=== PATIENT | female | born 1975 | race Caucasian/White ===

== ENCOUNTER → 2017-06-10 | Outpatient (CLI) | payer BC ==
[~2017-06-10] MED LIST: ESCI1TAB10 PO; LISD40CA PO; OXYC5TAB PO
== END | disposition home or self-care (01) ==
LOC: C.RDSM 15:00
PROVIDERS: ATTEND Physical Medicine & Rehabilitation Sports Medicine
DX: M25.512 Pain in left shoulder (principal)

== ENCOUNTER → 2017-09-09 | Outpatient (CLI) | payer BC ==
--- NOTE | 2017-09-09 11:08 | DIAGNOSTIC IMAGING REPORT ---
MRI OF THE LEFT SHOULDER CLINICAL HISTORY: Left shoulder pain. Decreased range of motion. Adhesive capsulitis. COMPARISON STUDY: Radiographs of the left shoulder dated 06/10/2017. TECHNIQUE: MRI of the left shoulder was performed utilizing various T1 and T2 weighted sequences in the axial, sagittal, coronal planes. IV contrast was not administered for this examination. FINDINGS: Rotator cuff: The supraspinatus and intraspinous tendons are preserved. The teres minor and subscapularis tendons are intact. There is no subacromial or subdeltoid bursal fluid. The acromioclavicular joint is unremarkable. Biceps tendon: The long head of the biceps tendon is normal in signal intensity and located within the bicipital groove. The anchor is maintained. Labrum: Grossly intact. Shoulder joint: There is no joint effusion. The articular cartilage over the glenoid is well maintained. Normal marrow signal intensity is preserved of the visualized osseous structures. There is mild thickening of the inferior glenohumeral ligament. No significant surrounding inflammation is identified. Musculature and soft tissues: The musculature of the shoulder is normal in bulk and signal intensity. No atrophy is seen. IMPRESSION: 1. The rotator cuff appears intact. 2. The long head of the biceps tendon is maintained. 3. There is mild nonspecific thickening of the inferior glenohumeral ligament. No significant surrounding inflammation is seen. This could be seen in the setting of adhesive capsulitis as clinically suspected. Clinical correlation will be essential. Electronically signed by: Donaldo Milian M.D. 09/09/2017 11:07 AM Dictated Date/Time: 09/09/2017 11:02 AM
== END | disposition home or self-care (01) ==
LOC: C.MRIBC 10:11
PROVIDERS: ATTEND Physical Medicine & Rehabilitation Sports Medicine
DX: M75.02 Adhesive capsulitis of left shoulder (principal)

== ENCOUNTER → 2017-10-15 | Day surgery (SDC) | payer BC, OTHER ==
[2017-09-29 12:25] VITALS: Ht 160 cm; Wt 68.2 kg
[~2017-10-15] VITALS: Ht 160 cm; Wt 68.2 kg
[~2017-10-15] MED LIST changes: +ATROPINE SULFATE 0.1 MG/ML 5ML SYR IV PRN; +CEFAZOLIN 2000MG IV PUSH 10 ML IV SCH; +CLON1TAB3 PO; +DEXAMETHASONE SOD INJ 4 MG/ML VIAL ONE; +ERGO500037 PO; -ESCI1TAB10 PO; +EpHEDrine SULFATE INJ 50 MG/ML AMP IV PRN; +FENTANYL CITRATE INJ 50 MCG/1 ML 2 ML VIAL IV PRN; +FENTANYL CITRATE INJ 50 MCG/1 ML 2 ML VIAL ONE; +HYDR-5688 PO; +LACTATED RINGER'S 1000ML 1,000 ML IV SCH; +LIDOCAINE HCL 1% MPF 5 ML VIAL ONE; +LIDOCAINE HCL 2% 2 ML VIAL (20MG/ML) ONE; +LIDOCAINE/EPINEPHRINE 1% INJ 50 ML VIAL ONE; +MIDAZOLAM HCL 1 MG/ML 2ML VIAL ONE; +MoRPHine SULFATE 2 MG/ML CARP IV PRN; +MoRPHine SULFATE 4 MG/ML 1 ML CARP\\VIAL IV PRN; +ONDANSETRON INJ 2 MG/ML 2 ML VIAL IV PRN; +ONDANSETRON INJ 2 MG/ML 2 ML VIAL ONE; -OXYC5TAB PO; +OXYCODONE/ACETAMINOPHEN 5-325 TAB PO PRN; +PATIENT'S ALLERGY INFO NEEDS ENTERED SCH; +PROPOFOL IV EMULSION 10 MG/ML 20 ML VIAL IV ONE; +ROPIVACAINE 0.5% 5 MG/ML 30 ML VIAL ONE; +SODIUM CHLORIDE 0.9% 1000ML 1,000 ML IV SCH; +VENL75CA PO
--- NOTE | 2017-10-15 13:52 | History & Physical Bridge Note ---
H&P Re-Evaluation Bridge Note: I have examined the patient, reviewed the History & Physical and in the interval since the performance of the History & Physical I have noted the following changes of clinical significance: No changes noted
--- NOTE | 2017-10-15 14:44 | [facility] Post Operative Brief Note ---
Immediate Operative Summary Operative Date Oct 15, 2017. Pre-Operative Diagnosis left frozen shoulder Post-Operative Diagnosis same Procedure(s) Performed exam and manipulation under anesthesia, steroid injection Surgeon sahara Resort Keeper Surgeon(s) jm edwards, student Estimated Blood Loss none Findings stiff shoulder Specimens none Drains 0 Anesthesia Iv sedation with block Complication(s) None Disposition Recovery Room / PACU
--- NOTE | 2017-10-15 14:50 | Discharge Instructions-SurgCtr ---
Discharge Instructions Date of Service Oct 15, 2017. Visit Reason for Visit: Left Shoulder Frozen Discharge Discharge Diagnosis / Problem: left frozen shoulder Discharge Goals Goal(s): Decrease discomfort, Improve function, Increase independence Activity Recommendations Activity Limitations: per Instructions/Follow-up section Weightbearing Status: Left weightbearing (as tolerated) Anesthesia . Post Anesthesia Instructions: If you have had General Anesthesia or IV Sedation: * Do not drive today. * Resume driving when surgeon permits. * Do not make important decisions or sign legal documents today. * Call surgeon for: 1. Temperature elevations greater than 101 degrees F. 2. Uncontrollable pain. 3. Excessive bleeding. 4. Persistent nausea and vomiting. 5. Medication intolerance (nausea, vomiting or rash). * For nausea and vomiting use only clear liquids such as: tea, soda, bouillon until nausea subsides, then gradually increase diet as tolerated. * If you have any concerns or questions, call your surgeon's office. If physician is unavailable and it is an emergency, call 911 or go to the nearest emergency room. . Instructions / Follow-Up Instructions / Follow-Up The following are instructions to follow after "Shoulder Surgery" including, Acromioplasty, Rotator Cuff Repair and Instability Surgery ACTIVITY RECOMMENDATIONS: * Minimize activity after surgery. * No excessive walking, jogging, sports or laboring. * Return to activity is individualized depending on the patient and type of surgery. * Driving is not permitted until at least your first post operative visit. Please ask your doctor when it is safe to resume driving. * Expect increased discomfort with increased activity. Continue to ice the shoulder as needed. SCHOOL/WORK RECOMMENDATIONS: * You may return to sedentary work or school when you are feeling more comfortable. This is usually 3-7 days after surgery. MEDICATIONS: * You will have a prescription for pain medication and an anti-inflammatory medication after surgery. * Use the pain medication for severe pain and the anti-inflammatory for less severe pain. Once the pain medication has run out, try to use the anti-inflammatory medication. If this is not effective, contact the office for assistance. * The pain medication may cause nausea, constipation and drowsiness. You should see how they affect you before driving or similar activity. * The anti-inflammatory medication may cause stomach upset and bleeding. If this occurs let your doctor know immediately . * Take a stool softener like Colace or a laxative like Senokot to prevent constipation. DIET: * Resume previous diet. SPECIAL CARE: ICE: You have the option of an ice cooler, gel packs or ice bags. * If you have an ice cooler, refer to the instructions for that device. The ice cooler may be used continuously. * If you do not have an ice cooler, you will need to use ice bags or gel packs. Do not apply ice directly to the skin. Use a thin dressing or katie shirt between the skin and ice bag. Apply ice for 20-30 minutes and repeat every 2-4 hours. This is especially important for the first 7-10 days after surgery. Once the pain improves, use ice as needed. ELEVATION: * You may be more comfortable sleeping in an upright position. Use the sling to elevate your arm. SLING/BRACE: * Use a sling left arm until your block wears off BATHING: * You may shower immediately after surgery. THERAPY: * You will begin therapy tomorrow. Make sure you do the exercises multiple times a day while at home. Advance activities as tolerated. FOLLOW UP VISIT: * If not already scheduled, please call the office at to schedule a follow-up appointment for 10 days after surgery and monthly thereafter. * You will start physical therapy on 10/16/17 at 9:30 a.m. Diet Recommendations Home Diet: no limitations, resume previous diet Procedures Procedures Performed: exam and manipulation under anesthesia, steroid injection Pending Studies Studies pending at discharge: no Medical Emergencies . Who to Call and When: Medical Emergencies: If at any time you feel your situation is an emergency, please call 911 immediately. . Non-Emergent Contact Non-Emergency issues call your: Surgeon Call Non-Emergent contact if: temperature is above 101, your pain is not controlled, your pain is worsening, your pain is unusual for you . . "Provider Documentation" section prepared by Gina Aguilera. . [place] Drug Monitoring Program Search Results: patient reviewed within database, no issues identified
--- NOTE | 2017-10-15 14:56 | [facility] Operative Report ---
Operative Report Operative Date Oct 15, 2017. Pre-Operative Diagnosis left frozen shoulder Post-Operative Diagnosis same Procedure(s) Performed exam and manipulation under anesthesia, steroid injection Surgeon sahara Associate Surgeon(s) jm JACKSON, student; Gina Aguilera PA-C Estimated Blood Loss none Findings frozen shoulder left Specimens none Drains 0 Anesthesia Iv sedation with block Complication(s) None Disposition Recovery Room / PACU Indications Patient is a 41 year old female with complaints of left shoulder pain and stiffening over the last year. She has failed conservative treatment which has included physical therapy. Surgical manipulation recommended, she agreed to proceed. Risks/complications discussed, informed consent obtained. Description of Procedure Patient was taken to the operating room, given IV sedation. Time out performed , prepped and draped in routine sterile fashion. Patient was awakened and taken to the recovery room in stable condition. I performed the intra- articular injection into her left shoulder. Please see Dr. Shetty's operative report for further detail. I attest to the content of the Intraoperative Record and any orders documented therein. Any exceptions are noted below.
--- NOTE | 2017-10-15 15:02 | Anesthesia Progress Nt - [facility] ---
Anesthesia Post Op Note Date & Time Oct 15, 2017 at 15:02 Vital Signs Pain Intensity: 0 Vital Signs Past 12 Hours Date Time Temp Pulse Resp B/P (MAP) Pulse Ox O2 Delivery O2 Flow Rate FiO2 10/15/17 14:22 94 25 97 10/15/17 14:22 98 25 10/15/17 14:20 128/85 10/15/17 14:17 93 18 10/15/17 14:17 93 18 98 10/15/17 14:15 125/83 10/15/17 14:12 93 0 98 10/15/17 14:12 94 10/15/17 14:10 126/80 10/15/17 14:07 103 10/15/17 14:07 102 8 100 10/15/17 14:05 135/84 10/15/17 14:02 93 20 100 10/15/17 14:02 90 10/15/17 14:00 122/88 10/15/17 13:57 99 10/15/17 13:57 98 26 100 10/15/17 13:57 102 12 114/85 (95) 97 Mask 6 10/15/17 13:55 114/85 10/15/17 13:52 93 0 98 10/15/17 13:52 83 10/15/17 10:14 37.0 86 20 126/85 (99) 98 Room Air Notes Mental Status: alert / awake / arousable, participated in evaluation Pt Amnestic to Procedure: Yes Nausea / Vomiting: adequately controlled Pain: adequately controlled Airway Patency, RR, SpO2: stable & adequate BP & HR: stable & adequate Hydration State: stable & adequate Anesthetic Complications: no major complications apparent
[2017-10-15 15:23] VITALS: TEMP 36.1
[2017-10-15 15:40] VITALS: BP 121/76; PULSE 81; O2SAT 100
--- NOTE | 2017-10-15 16:55 | OPERATIVE REPORT ---
DATE OF OPERATION: 10/15/2017 PREOPERATIVE DIAGNOSIS: Left frozen shoulder. POSTOPERATIVE DIAGNOSIS: Same. PROCEDURE: Examination of left shoulder, manipulation of left shoulder under anesthesia; corticosteroid injection, left shoulder joint. SURGEON: Dr. Shetty. HOSE MAKER: Lillian Sanchez, physician's pediatric assistant student. ANESTHESIA: sedation with interscalene block. INDICATIONS OF PROCEDURE: The patient is a 41-year-old female who has left shoulder stiffness consistent with adhesive capsulitis refractory to nonsurgical methods of management. Her MRI showed no significant structural pathology other than adhesive capsulitis. She has failed nonoperative management and has wished to undergo manipulation. She is status post the same procedure on her contralateral shoulder with good results. She is not a diabetic. PROCEDURE IN DETAIL: Informed consent was obtained. The patient was identified as Mackenzie Judd. She identified the operative site as the left shoulder. I marked it with my initials. A preop surgical time out was performed. Preop IV antibiotics were held. She was taken to the operating room and positioned supine on the OR table and the anesthetic and sedation were administered. DVT prophylaxis is not indicated. Examination was performed. Range of motion of the right shoulder was 180 degrees of forward elevation and abduction. At 90 degrees of abduction, she had internal rotation of 45 degrees, external rotation of 100 degrees. With the arm into side she had 60 degrees of external rotation. The left shoulder was gently manipulated with a short lever arm in forward flexion. There was a typical crepitation noted with the abrupt return of full overhead elevation and abduction equal to the opposite side. The arm was then gently manipulated at the side at 45 degrees of abduction and at 90 degrees of abduction in both external and internal rotation and this resulted in the restorationism of full and equal range of motion, comparable to the other shoulder. A 1% plain lidocaine 2 mL and 40 mg Depo-Medrol were then injected into the left shoulder glenohumeral joint from a posterior approach using sterile technique. There were no specimens, counts or complications. There was no blood loss. She was awakened from anesthesia without difficulty and taken to recovery room in stable condition. At the conclusion of the operation, I spoke to the patient's and informed him of my findings and postoperative instructions were given. She will resume therapy on her own this evening at follow up with PT tomorrow for her stretching program. I attest to the content of the Intraoperative Record and any orders documented therein. Any exception s are noted below.
== END | disposition home or self-care (01) ==
LOC: X.SURG 09:54
PROVIDERS: ATTEND Physical Medicine & Rehabilitation Sports Medicine
DX: M75.02 Adhesive capsulitis of left shoulder (principal); F90.9 Attention-deficit hyperactivity disorder, unspecified type; F41.9 Anxiety disorder, unspecified; Z79.899 Other long term (current) drug therapy